=== PATIENT | male | born 2000 | race Caucasian/White ===

== ENCOUNTER 2022-02-28 12:21 | Emergency (ER) | payer MEDICAID ==
[~2022-02-28] VITALS: Ht 167.6 cm; Wt 65.0 kg
[2022-02-28 12:34] VITALS: BP 132/75
== END 2022-02-28 16:20 | disposition home or self-care (01) ==
LOC: ER 13:46
DX: Z00.00 Encounter for general adult medical examination without abnormal findings (principal)
CPT/HCPCS: 99281